=== PATIENT | female | born 1950 | race Caucasian/White ===

== ENCOUNTER 2019-09-09 12:27 | Inpatient (IN) | payer MEDICARE, BC ==
[~2019-09-09] VITALS: Ht 152.4 cm; Wt 54.4 kg
--- NOTE | 2019-09-09 12:48 | NUR ---
@bedside, MSE in progress
[2019-09-09] MEDS ORDERED: ONDANSETRON 4 MG/2 ML VIAL ONE (12:57)
[2019-09-09] MEDS ORDERED: PANTOPRAZOLE SODIUM 40 MG VIAL ONE (12:57)
[2019-09-09] MEDS ORDERED: PANTOPRAZOLE SODIUM 40 MG VIAL IV ONE (13:00)
[2019-09-09] MEDS ORDERED: ONDANSETRON 4 MG/2 ML VIAL IV ONE (13:00)
[2019-09-09] MEDS ORDERED: IV NORMAL SALINE 1000 ML BAG IV ONE ×2 (13:00→13:45)
[2019-09-09 13:20] LABS: CREATININE 2.8 mg/dL (0.6-1.3)
--- NOTE | 2019-09-09 13:22 | NUR ---
Patient is resting comfortably on gurney with eyes closed, denies abdominal pains@the moment, NAD, npo maintained. Extra warm blankets provided.
[2019-09-09 13:26] LABS: BILIRUBIN,DIRECT 0.2 mg/dL (0.0-0.2); BILIRUBIN,TOTAL 0.5 mg/dL (0.2-1.0); TOTAL PROTEIN, SERUM 7.3 g/dL (6.4-8.2)
[2019-09-09 13:38] LABS: BASOPHILS % (AUTO) 0.2 % (0.0-2.0); EOSINOPHILS % (AUTO) 0.3 % (0.0-7.0); HEMATOCRIT 36.9 % (31.2-41.9); HEMOGLOBIN 12.7 g/dL (10.9-14.3); LYMPHOCYTES # (AUTO) 0.6 K/uL (20.0-40.0); LYMPHOCYTES % (AUTO) 6.7 % (20.5-51.5); MEAN CORPUSCULAR HGB CONC 35 g/dL (32.3-35.6); MONOCYTES # (AUTO) 1.4 K/uL (2.0-10.0); MONOCYTES % (AUTO) 15.7 % (0.0-11.0); NEUTROPHILS # (AUTO) 6.9 K/uL (1.8-8.9); NEUTROPHILS % (AUTO) 77.1 % (38.5-71.5); PLATELET COUNT (AUTO) 302 K/uL (179-408); RED BLOOD CELL COUNT(AUTO) 4.24 MIL/uL (3.63-4.92)
[2019-09-09 13:53] LABS: BAND % (MANUAL) 24 % (0-10); BASOPHILS % (MANUAL) 1 % (0-2); LYMPHOCYTES % (MANUAL) 6 % (20-40); METAMYELOCYTES % 1 % (0-1); MONOCYTES % (MANUAL) 14 % (2-10); NEUTROPHILS % (MANUAL) 54 % (42-75)
--- NOTE | 2019-09-09 15:29 | NUR ---
68 year old female received from er via gurney for arf ,pt is [id number] light with in reach . called for admission orders
[2019-09-09 15:48] VITALS: BP 111/52
[2019-09-09] MEDS ORDERED: ZOLPIDEM 5 MG TABLET PO PRN (17:30)
[2019-09-09] MEDS ORDERED: diphenhydrAMINE 25 MG CAP PO PRN (17:30)
[2019-09-09] MEDS ORDERED: ACETAMINOPHEN 325 MG TABLET PO PRN (17:30)
[2019-09-09] MEDS ORDERED: Z GUARD REMEDY PASTE 57 GM TUBE TOP PRN (17:30)
[2019-09-09] MEDS ORDERED: MAGNESIUM HYDROXIDE 30 ML LIQUID UDC PO PRN (17:30)
[2019-09-09] MEDS: IV D5 1/2 NS 1000 ML 1,000 ML IV PRN (17:41)
[2019-09-09] MEDS: HYDROCODONE/APAP 5-325MG TABLET PO PRN (17:54)
[2019-09-09] MEDS: ONDANSETRON 4 MG/2 ML VIAL IV PRN (17:58)
[2019-09-09] MEDS: POTASSIUM CHLORIDE 50 ML IV SCH ×3 (18:05→22:39)
--- NOTE | 2019-09-09 19:30 | NUR ---
patient resting in bed watching tv. potassium running. v/s stable and no signs of acute distress. will continue to monitor.
[2019-09-09 19:50] VITALS: BP 100/42
[2019-09-09] MEDS: CARISOPRODOL 350 MG TABLET PO SCH (20:15)
--- NOTE | 2019-09-09 20:23 | NUR ---
spoke with marck in pharmacy. ok to change elavil to take at bedtime instead of morning.
[2019-09-09] MEDS: AMITRIPTYLINE HCL 50 MG TABLET PO SCH (21:02)
[2019-09-09] MEDS: DIPHENOXYLATE HCL/ATROP SULF TABLET PO PRN (22:39)
[2019-09-10] MEDS: POTASSIUM CHLORIDE 50 ML IV SCH (00:08)
[2019-09-10] MEDS ORDERED: POTASSIUM CHLORIDE 50 ML IV SCH ×2 (00:15→16:15)
--- NOTE | 2019-09-10 01:28 | NUR ---
hand off report given to night nurse.
--- NOTE | 2019-09-10 01:31 | NUR ---
3 BAGS OF POTASSIUM COMPLETED. FOR FIRST 2 BAGS PATIENT HAD C/O OF PAIN ON RIGHT ARM. REFUSED POTASSIUM ON AND OFF. NURSING INTERVENTIONS PROVIDED AND PATIENT TOLERATED LAST BAG WITH NO COMPLAINTS.
--- NOTE | 2019-09-10 01:55 | NUR ---
ASSUMED CARE FROM NURSE DAVIES; AGREE WITH PREVIOUS ASSESSMENT;
[2019-09-10 04:00] VITALS: BP 105/52
[2019-09-10] MEDS: HYDROCODONE/APAP 5-325MG TABLET PO PRN (05:25)
[2019-09-10] MEDS: DIPHENOXYLATE HCL/ATROP SULF TABLET PO PRN (05:25)
[2019-09-10] MEDS: PANTOPRAZOLE SODIUM 40 MG TABLET.DR PO SCH (06:31)
--- NOTE | 2019-09-10 07:44 | NUR ---
received pt. resting in bed alert oriented x4. pt. denies pain/ discomfort at this time. IV in R forearm 20 gauge intact patent running prescribed fluids. pt. on room air. pt. denies sob/ difficulty breathing. all needs met. safety measures in place. call light within reach. will continue to monitor pt.
[2019-09-10 07:53] VITALS: BP 103/53
[2019-09-10 07:53] LABS: CREATININE 2.2 mg/dL (0.6-1.3); MAGNESIUM 1.7 mg/dL (1.8-2.4); PHOSPHOROUS 3.2 mg/dL (2.5-4.9); POTASSIUM 3.1 mmol/L (3.5-5.1)
[2019-09-10 08:20] LABS: BASOPHILS % (AUTO) 0.4 % (0.0-2.0); EOSINOPHILS # (AUTO) 0.1 K/uL (0.0-0.7); EOSINOPHILS % (AUTO) 1.3 % (0.0-7.0); HEMATOCRIT 34.5 % (31.2-41.9); HEMOGLOBIN 12.2 g/dL (10.9-14.3); LYMPHOCYTES # (AUTO) 0.5 K/uL (20.0-40.0); LYMPHOCYTES % (AUTO) 7.7 % (20.5-51.5); MEAN CORPUSCULAR HEMOGLOBIN 30.4 uug (24.7-32.8); MEAN CORPUSCULAR HGB CONC 35 g/dL (32.3-35.6); MONOCYTES # (AUTO) 0.8 K/uL (2.0-10.0); MONOCYTES % (AUTO) 12.1 % (0.0-11.0); NEUTROPHILS # (AUTO) 5.1 K/uL (1.8-8.9); NEUTROPHILS % (AUTO) 78.5 % (38.5-71.5); PLATELET COUNT (AUTO) 263 K/uL (179-408); WHITE BLOOD COUNT (AUTO) 6.5 K/uL (3.8-11.8)
[2019-09-10] MEDS ORDERED: AMITRIPTYLINE HCL 50 MG TABLET PO SCH (09:00)
[2019-09-10] MEDS ORDERED: ATENOLOL 50 MG TABLET PO SCH (09:00)
[2019-09-10] MEDS ORDERED: AMLODIPINE 10 MG TABLET PO SCH (09:00)
[2019-09-10] MEDS ORDERED: Medication Not On Formulary EA (Esomeprazole Mag Trihydrate (Nexium) 40 MG) PO SCH (09:00)
[2019-09-10] MEDS ORDERED: CIPROFLOXACIN IV 400 MG in PREMIXED 1 EACH IV SCH ×2 (11:30→12:00)
[2019-09-10 12:00] VITALS: BP 109/46
[2019-09-10] MEDS ORDERED: PIPERACILLIN SODIUM/TAZOBACTAM 3.375 G in IV DEXTROSE 5% 50 ML IV SCH (12:00)
[2019-09-10] MEDS: IV D5 1/2 NS 1000 ML 1,000 ML IV PRN (12:26)
[2019-09-10] MEDS: ONDANSETRON 4 MG/2 ML VIAL IV PRN (12:27)
[2019-09-10] MEDS ORDERED: POTASSIUM CHLORIDE 10 MEQ TAB.PRT.SR PO ONE (12:30)
[2019-09-10] MEDS ORDERED: MAGNESIUM OXIDE 400 MG TABLET PO ONE (12:30)
--- NOTE | 2019-09-10 13:43 | NUR ---
Pt.'s IV in R Forearm 20 gauge started leaking new iv inserted on L hand 22 gauge infiltrated. New IV that is patent and running antibiotics is on R hand 22 gauge intact patent. will monitor
--- NOTE | 2019-09-10 13:44 | NUR ---
pt. states zofran is not helping she feels very nauseous still. pt. had emesis episode of dark green liquid. pt. had episode of diarrhea. pt. states she has back pain. does not want any PO medication as she is very nauseous. called dr. colby for orders. no answer at this time. will continue to monitor pt.
--- NOTE | 2019-09-10 15:47 | NUR ---
spoke to dr. gore about pt being nauseous drRosendo wants to put in ng tube on low intermittent suctioning. Pt. refused NG tube. Called Dr. Gore. back to report pt. refusal of Ng tube. Pt. requesting to switch antibiotics as she thinks cipro is what is making her nauseous. pt. had 2 episodes of emesis after providing pt. with PO K and Mg. Will ask if he wants to replace again.
[2019-09-10 15:51] VITALS: BP 120/61
--- NOTE | 2019-09-10 16:00 | NUR ---
Pt. has 3 bags of K and 1 bag of Mg. due pt. does not want IV at the moment because she wants to sit on toilet and does not want IV attached. Will give bags as soon as she finishes. May carry on to next shift as pt. has 4 bags total.
--- NOTE | 2019-09-10 16:12 | NUR ---
TO from Dr. Gore to give 30 meQ IV K and 1 gram IV Mg as pt. vomitted PO Mg and K.
[2019-09-10] MEDS ORDERED: MAGNESIUM SULFATE 1 GM in IV DEXTROSE 5% 100 ML IV ONE (16:15)
[2019-09-10] MEDS ORDERED: MAGNESIUM SULFATE/D5W 100 ML IV SCH (16:30)
[2019-09-10] MEDS: POTASSIUM CHLORIDE 10 MEQ, LIDOCAINE-MPF 1% 1 ML in IV DEXTROSE 5% 100 ML IV SCH ×3 (18:26→21:48)
--- NOTE | 2019-09-10 18:54 | NUR ---
2 RNs and charge nurse attempted to put in second IV. 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 Pt. is a hardstick. Called Dr. Gore to request an order for Midline. Awaiting call back from . I was able to hang 1 bag of Mg. 1 bag of K. 2 more bags of K need to be given and IV antibiotics. Steph REGIONAL SALES MANAGER came to consult pt. for Dr. Hinkle. After talking with REGIONAL SALES MANAGER Steph pt. is agreeing to do NG tube. Pt. is now on clear liquid diet. Dr. Portillo called and spoke to me regarding update on pt. He said he will not be in today but will come by.
--- NOTE | 2019-09-10 19:11 | NUR ---
TO order for Midline insertion from Dr. Gore. Cellar [facility] called.
[2019-09-10 19:44] VITALS: BP 120/51
[2019-09-10] MEDS: AMITRIPTYLINE HCL 50 MG TABLET PO SCH (21:18)
[2019-09-10] MEDS: CARISOPRODOL 350 MG TABLET PO SCH (21:18)
[2019-09-10] MEDS ORDERED: DIATR MEGLU/DIATRIZOATE SODIUM 30 ML SOLUTION ONE (21:34)
--- NOTE | 2019-09-10 22:49 | NUR ---
ADMINISTRATION OF POTASSIUM ENDORSED TO ME BY MORNING SHIFT COMPLETED. GAP OF TIME IN BETWEEN ADMINISTRATION DUE TO NG TUBE INSERTION. IV LINE REQUIRED TO BE DISCONNECTED. 1ST ATTEMPT FOR NG TUBE UNSUCCESSFUL. 2ND ATTEMPT SUCCESSFUL. PATIENT REFUSED IV LINES BEFORE AND AFTER NG INSERTIONS.
[2019-09-10] MEDS: MEROPENEM 500 MG in IV NORMAL SALINE 50 ML IV SCH (22:57)
--- NOTE | 2019-09-11 00:03 | NUR ---
PATIENT ADMINISTERED AMBIEN. ELECTRICAL OUTAGE ON TONIGHTS SHIFT. PREVIOUS NURSE WHO PULLED AMBIEN HAD ELECTRICAL OUTAGE WHEN REMOVING. WHEN PULLING AMBIEN FROM [facility] FOR THIS PATIENT COUNT WAS OFF BY 1 COUNT. THE CORRECT COUNT WAS 12, BUT [facility] HAD 13 CORRECT COUNT. NOTHING WAS PULLED FIRST TIME. 2ND ATTEMPT TO PULL AMBIEN 1 TABLET WAS TAKEN. CORRECT COUNT SHOULD BE 11 AFTER THIS ADMINISTRATION.
--- NOTE | 2019-09-11 00:45 | NUR ---
lilly araujo order NGT tube to be on low intermittent suction.
[2019-09-11 04:01] VITALS: BP 110/68
[2019-09-11] MEDS: METRONIDAZOLE 500 MG/NS 100ML 500 MG in PREMIXED 1 EACH IV SCH ×4 (04:21→12:49)
[2019-09-11] MEDS: IV D5 1/2 NS 1000 ML 1,000 ML IV PRN (04:21)
--- NOTE | 2019-09-11 04:35 | NUR ---
amy araujo ordered small bowel follow through
--- NOTE | 2019-09-11 04:38 | NUR ---
patient resting comfortably. NG tube suctioning and patent. will continue to monitor and endorse accordingly.
[2019-09-11] MEDS: MEROPENEM 500 MG in IV NORMAL SALINE 50 ML IV SCH ×2 (05:08→17:23)
[2019-09-11] MEDS: PANTOPRAZOLE SODIUM 40 MG TABLET.DR PO SCH (06:04)
[2019-09-11 06:29] LABS: BASOPHILS % (AUTO) 0.2 % (0.0-2.0); EOSINOPHILS # (AUTO) 0.1 K/uL (0.0-0.7); EOSINOPHILS % (AUTO) 0.8 % (0.0-7.0); HEMATOCRIT 36.4 % (31.2-41.9); HEMOGLOBIN 12.6 g/dL (10.9-14.3); LYMPHOCYTES # (AUTO) 0.6 K/uL (20.0-40.0); LYMPHOCYTES % (AUTO) 6.8 % (20.5-51.5); MEAN CORPUSCULAR HGB CONC 35 g/dL (32.3-35.6); MEAN CORPUSCULAR VOLUME 86.3 fL (75.5-95.3); NEUTROPHILS # (AUTO) 6.6 K/uL (1.8-8.9); NEUTROPHILS % (AUTO) 80.2 % (38.5-71.5); PLATELET COUNT (AUTO) 341 K/uL (179-408); RED BLOOD CELL COUNT(AUTO) 4.21 MIL/uL (3.63-4.92); WHITE BLOOD COUNT (AUTO) 8.2 K/uL (3.8-11.8)
[2019-09-11 06:48] LABS: MAGNESIUM 2.2 mg/dL (1.8-2.4); PHOSPHOROUS 2.3 mg/dL (2.5-4.9)
[2019-09-11 06:55] LABS: POTASSIUM 2.8 mmol/L (3.5-5.1)
--- NOTE | 2019-09-11 07:45 | NUR ---
received pt. resting in bed alert oriented x4. Pt. has L UA midline intact patent running prescribed fluid. IV in R hand 22 gauge intact patent saline lock. pt. denies sob/ difficulty breathing. Pt. has NG tube on low intermittent suctioning draining dark green fluid. Pt. signed consent for small bowel follow through ordered by KEREN Choi. All needs met. safety measures in place. call light within reach. will continue to monitor pt.
[2019-09-11] MEDS ORDERED: MAGNESIUM SULFATE/D5W 100 ML IV SCH (07:51)
--- NOTE | 2019-09-11 08:24 | NUR ---
Spoke to Dr. Gore about pt's PO medication for BP. He gave order to discontinue BP meds as pt.'s BP runs low and she has NG tube suctioning. Order for lidocaine viscous swish 5 ML Q 6 HR PRN. Orders put in.
[2019-09-11] MEDS: POTASSIUM CHLORIDE 50 ML IV SCH ×4 (09:50→17:15)
[2019-09-11] MEDS: POTASSIUM PHOSPHATE MM 7.5 MMOL in IV DEXTROSE 5% 100 ML IV SCH ×2 (09:50→18:04)
--- NOTE | 2019-09-11 10:36 | NUR ---
Pt.'s IV in R hand 22 gauge infiltrated. Will remove, ice, and elevate hand. Only will have one line in L UA midline.
[2019-09-11] MEDS: LIDOCAINE VISCUS 2% 15 ML UDC MM PRN ×2 (11:05→16:12)
[2019-09-11] MEDS ORDERED: HYDROMORPHONE 1 MG/1 ML DISP.SYRIN IV PRN (11:30)
[2019-09-11] MEDS: ONDANSETRON 4 MG/2 ML VIAL IV PRN (11:33)
[2019-09-11 12:00] VITALS: BP 119/65
--- NOTE | 2019-09-11 12:19 | NUR ---
Pt. removed from NG tube suctioning due to small bowel follow through procedure. KEREN Choi saw pt. at bedside. KEREN Talavera saw pt. at bedside.
--- NOTE | 2019-09-11 12:54 | NUR ---
Pt. stated she sneezed and NG tube came out. Pt. states she did not pull it out and does not want it put back in right now. Educated pt. on importance of NG tube. She stated she does not want it in right now. Will tell hospitalist.
[2019-09-11 13:11] LABS: BAND % (MANUAL) 6 % (0-10); LYMPHOCYTES % (MANUAL) 8 % (20-40); MONOCYTES % (MANUAL) 12 % (2-10); NEUTROPHILS % (MANUAL) 74 % (42-75)
[2019-09-11] MEDS ORDERED: DIAZEPAM 10 MG/2 ML DISP.SYRIN IV PRN (15:15)
[2019-09-11] MEDS: LORAZEPAM 2 MG/1 ML VIAL IV PRN ×2 (16:08→23:34)
--- NOTE | 2019-09-11 18:37 | NUR ---
3 ATTEMPTS TO PUT IN NG TUBE WITH ICU NURSE AND CHARGE NURSE. KUB IS SHOWING THAT THE NG TUBE IS COILING. PT DOES HAVE LARGE HIATAL HERNIA. SPOKE TO ARIES CADET SHE SAID LONG IT IS IN THE STOMACH AND IT IS COILED ITS OKAY. AWAITING KUB
--- NOTE | 2019-09-11 19:15 | NUR ---
RECEIVED PATIENT AWAKE IN BED. AO X 4. SON AT THE BEDSIDE. CURRENTLY NO NG-TUBE INSERTED IN PATIENT. WAS INFORMED PATIENT IS AWAITING SURGICAL CONSULT TOMORROW. PATIENT KEPT WITH HEAD OF BED AT 90 DEGREES. PATIENT DOES NOT VOICE ANY DISCOMFORT AT THE MOMENT OR SHORTNESS OF BREATH. DENIES NAUSEA. MIDLINE IN LEFT UPPER ARM FLUSHING, PATENT, AND INTACT. WILL CONTINUE TO MONITOR PATIENT ACCORDINGLY.
--- NOTE | 2019-09-11 19:30 | NUR ---
ARIES Talavera aware of NG tube coiling and Steph VELIZ aware of NG tube coiling. Removed NG tube. No new orders awaiting for surgery to see pt tomorrow. Will keep HOB >90 aspiration risk
[2019-09-11] MEDS: AMITRIPTYLINE HCL 50 MG TABLET PO SCH (21:00)
[2019-09-11] MEDS: CARISOPRODOL 350 MG TABLET PO SCH (21:00)
[2019-09-11 21:04] VITALS: BP 105/54
[2019-09-12] MEDS: IV D5 1/2 NS 1000 ML 1,000 ML IV PRN (04:01)
[2019-09-12] MEDS: MEROPENEM 500 MG in IV NORMAL SALINE 50 ML IV SCH ×2 (05:56→18:11)
[2019-09-12 05:59] VITALS: BP 119/67
--- NOTE | 2019-09-12 06:18 | NUR ---
PATIENT SLEPT WELL THROUGHOUT THE NIGHT WITH HEAD OF BED AT 90 DEGREES AT ALL TIME. NO COMPLAINTS OF PAIN OR NAUSEA. PATIENT HAD WATERY DIARRHEA X 3 THROUGHOUT SHIFT. HELD MEDICATIONS DUE TO NPO STATUS. NO ACUTE CHANGE IN PATIENT CONDITION. WILL ENDORSE TO ONCOMING SHIFT.
[2019-09-12 07:17] LABS: BASOPHILS % (AUTO) 0.3 % (0.0-2.0); EOSINOPHILS # (AUTO) 0.1 K/uL (0.0-0.7); EOSINOPHILS % (AUTO) 1.2 % (0.0-7.0); HEMATOCRIT 39.6 % (31.2-41.9); HEMOGLOBIN 13.8 g/dL (10.9-14.3); LYMPHOCYTES # (AUTO) 1.1 K/uL (20.0-40.0); LYMPHOCYTES % (AUTO) 10.9 % (20.5-51.5); MEAN CORPUSCULAR HEMOGLOBIN 30.3 uug (24.7-32.8); MEAN CORPUSCULAR HGB CONC 35 g/dL (32.3-35.6); MEAN CORPUSCULAR VOLUME 86.6 fL (75.5-95.3); MONOCYTES # (AUTO) 1.2 K/uL (2.0-10.0); MONOCYTES % (AUTO) 11.6 % (0.0-11.0); NEUTROPHILS # (AUTO) 7.6 K/uL (1.8-8.9); PLATELET COUNT (AUTO) 397 K/uL (179-408); RED BLOOD CELL COUNT(AUTO) 4.57 MIL/uL (3.63-4.92)
[2019-09-12 07:30] LABS: BILIRUBIN,TOTAL 0.5 mg/dL (0.2-1.0); MAGNESIUM 2.6 mg/dL (1.8-2.4); PHOSPHOROUS 2.6 mg/dL (2.5-4.9); TOTAL PROTEIN, SERUM 7.4 g/dL (6.4-8.2)
[2019-09-12 07:57] LABS: POTASSIUM 2.9 mmol/L (3.5-5.1)
[2019-09-12 10:06] LABS: A/G RATIO 0.9 (0.7-1.7); ALBUMIN 2.9 g/dL (2.9-4.4); ALPHA-1-GLOBULIN 0.4 g/dL (0.0-0.4); ALPHA-2-GLOBULIN 0.9 g/dL (0.4-1.0); GAMMA GLOBULIN 0.9 g/dL (0.4-1.8); GLOBULIN, TOTAL 3.3 g/dL (2.2-3.9); M-SPIKE Not Observed g/dL (Not Observed)
[2019-09-12 12:00] VITALS: BP 128/70
[2019-09-12] MEDS: POTASSIUM CHLORIDE 50 ML IV SCH ×4 (13:55→16:59)
[2019-09-12 16:00] VITALS: BP 145/79
[2019-09-12] MEDS ORDERED: PANTOPRAZOLE SODIUM 40 MG VIAL IV SCH (18:00)
--- NOTE | 2019-09-12 19:20 | NUR ---
PATIENT IN BED WITH HOB ELEVATED, ALERT AND ORIENTED X3, NO SOB AND NO C/O PAIN AT THIS TIME. KEPT CLEAN AND DRY AT ALL TIMES. BED IN LOW POSITION AND SIDE RAILS UP . ALL NEEDS ATTENDED. CALL LIGHT WITHIN REACH. WILL CONTINUE TO MONITOR.
[2019-09-12 19:56] VITALS: BP 118/72
--- NOTE | 2019-09-12 20:00 | NUR ---
RECEIVED PATIENT AWAKE IN BED. A/O X4. DENIES PAIN. NO RESP. DISTRESS NOTED. VS WNL. IVF INFUSING WELL TO LEFT UPPER ARM MID-LINE. CALL LIGHT IN REACH. ALL NEEDS ATTENDED. WILL CONTINUE TO MONITOR AND ASSESS.
[2019-09-12] MEDS: CARISOPRODOL 350 MG TABLET PO SCH (20:59)
[2019-09-12] MEDS: AMITRIPTYLINE HCL 50 MG TABLET PO SCH (20:59)
[2019-09-12] MEDS: ONDANSETRON 4 MG/2 ML VIAL IV PRN (21:35)
[2019-09-13] MEDS: IV D5 1/2 NS 1000 ML 1,000 ML IV PRN (03:12)
[2019-09-13] MEDS: MEROPENEM 500 MG in IV NORMAL SALINE 50 ML IV SCH (05:12)
[2019-09-13 06:19] LABS: BASOPHILS % (AUTO) 0.1 % (0.0-2.0); EOSINOPHILS # (AUTO) 0.2 K/uL (0.0-0.7); EOSINOPHILS % (AUTO) 1.3 % (0.0-7.0); HEMATOCRIT 36.7 % (31.2-41.9); HEMOGLOBIN 12.7 g/dL (10.9-14.3); LYMPHOCYTES # (AUTO) 1.3 K/uL (20.0-40.0); MEAN CORPUSCULAR HEMOGLOBIN 29.8 uug (24.7-32.8); MEAN CORPUSCULAR HGB CONC 35 g/dL (32.3-35.6); MEAN CORPUSCULAR VOLUME 86.2 fL (75.5-95.3); MONOCYTES # (AUTO) 0.9 K/uL (2.0-10.0); MONOCYTES % (AUTO) 7.5 % (0.0-11.0); NEUTROPHILS # (AUTO) 10.1 K/uL (1.8-8.9); NEUTROPHILS % (AUTO) 81.1 % (38.5-71.5); PLATELET COUNT (AUTO) 391 K/uL (179-408); RED BLOOD CELL COUNT(AUTO) 4.26 MIL/uL (3.63-4.92); WHITE BLOOD COUNT (AUTO) 12.5 K/uL (3.8-11.8)
[2019-09-13 06:38] LABS: CREATININE 1.6 mg/dL (0.6-1.3); MAGNESIUM 2.1 mg/dL (1.8-2.4); PHOSPHOROUS 1.8 mg/dL (2.5-4.9)
[2019-09-13 06:45] LABS: POTASSIUM 2.8 mmol/L (3.5-5.1)
[2019-09-13] MEDS ORDERED: IV DEXTROSE 5W-0.45% NS + KCL 1,000 ML IV ONE (07:45)
[2019-09-13] MEDS ORDERED: POTASSIUM CHLORIDE 20 MEQ TAB.PRT.SR PO ONE (07:45)
--- NOTE | 2019-09-13 07:45 | NUR ---
CALLED DR. VILLARREAL OFFICE AT 0720 FOR PATIENT CRITICAL LAB OF POTASSIUM OF 2.8 . RECEIVED ORDER FROM DR. NOVAK OF POTASSIUM 40 MEQ PO AND D5 1/2 NS WITH 40 MEQ OF POTASSIUM AT 120 ML /HR.
[2019-09-13] MEDS ORDERED: POTASSIUM CHLORIDE 20 MEQ POWDER PACKET PO ONE (09:00)
[2019-09-13 11:18] VITALS: BP 122/59
[2019-09-13] MEDS: POTASSIUM PHOSPHATE MM 5 MMOL in IV DEXTROSE 5% 100 ML IV SCH ×4 (11:37→17:38)
[2019-09-13] MEDS: ONDANSETRON 4 MG/2 ML VIAL IV PRN (12:50)
[2019-09-13 15:05] VITALS: BP 122/70
--- NOTE | 2019-09-13 18:10 | NUR ---
RECEIVED DISCHARGE ORDER WITH HOME HEALTH FOR PATIENT TO GO HOME VIA PRIVATE CAR. DISCHARGE INSTRUCTION GIVEN AND VERBALIZED UNDERSTANDING. BELONGING ACCOUNTED FOR AND SIGNED. MIDLINE KEPT FOR HOME HEALTH USE AND FOR HYDRATION. ID BAND REMOVED. NO C/O PAIN AND NO SOB NOTED. QUESTION AND CONCERNS ADDRESSED. PATIENT ESCORTED OUT THE FACILITY VIA WHEELCHAIR.
== END 2019-09-13 18:10 | disposition home health service (06) | DRG 388 ==
LOC: ER 12:29 → MEDSURG3 14:30
PROVIDERS: ADMIT Internal Medicine; ATTEND Internal Medicine
PROC: 05HA33Z Insertion of Infusion Device into Left Brachial Vein, Percutaneous Approach (ICD-10-PCS; principal; 2019-09-10)
PROC: 0D9670Z Drainage of Stomach with Drainage Device, Via Natural or Artificial Opening (ICD-10-PCS; 2019-09-11)
DX: K56.50 Intestinal adhesions [bands], unspecified as to partial versus complete obstruction (principal); N17.0 Acute kidney failure with tubular necrosis; E87.1 Hypo-osmolality and hyponatremia; J98.11 Atelectasis; M79.7 Fibromyalgia; K21.9 Gastro-esophageal reflux disease without esophagitis; E87.6 Hypokalemia; Z93.3 Colostomy status; K80.20 Calculus of gallbladder without cholecystitis without obstruction; K44.9 Diaphragmatic hernia without obstruction or gangrene; K76.0 Fatty (change of) liver, not elsewhere classified; E83.42 Hypomagnesemia; E78.5 Hyperlipidemia, unspecified; E86.1 Hypovolemia; Z92.3 Personal history of irradiation; Z92.21 Personal history of antineoplastic chemotherapy; Z90.710 Acquired absence of both cervix and uterus; Z85.42 Personal history of malignant neoplasm of other parts of uterus; K56.699 Other intestinal obstruction unspecified as to partial versus complete obstruction; K43.2 Incisional hernia without obstruction or gangrene; K58.9 Irritable bowel syndrome, unspecified; K40.20 Bilateral inguinal hernia, without obstruction or gangrene, not specified as recurrent; J47.9 Bronchiectasis, uncomplicated; M81.0 Age-related osteoporosis without current pathological fracture; N26.1 Atrophy of kidney (terminal); I13.10 Hypertensive heart and chronic kidney disease without heart failure, with stage 1 through stage 4 chronic kidney disease, or unspecified chronic kidney disease; E11.22 Type 2 diabetes mellitus with diabetic chronic kidney disease; N18.9 Chronic kidney disease, unspecified; I25.10 Atherosclerotic heart disease of native coronary artery without angina pectoris; Z88.0 Allergy status to penicillin; Z91.018 Allergy to other foods
CPT/HCPCS: 36415; 70030-TC; 71045; 74018; 74250; 83605; 83690; 83735; 83970; 84100; 84155; 84165; 85025; 86625; 87046; 87086; 93005; A4663; C9113; G0378; J0744; J2001; J2060; J2185; J2405; J3475; J3480; J3490; J7030; J7050; J7060; Q9963

== ENCOUNTER 2023-03-25 18:07 | Emergency (ER) | payer MEDICARE ==
[~2023-03-25 18:07] MED LIST: AMIT50TA17 PO; AMLO10TA4 PO; ATEN-171 PO; CARI350T PO; DIPH1TAB PO; DIPH25TA62 PO; ESOM40CA PO
== END 2023-03-25 20:30 | disposition left against medical advice (07) ==
LOC: ER 18:11
DX: Z53.21 Procedure and treatment not carried out due to patient leaving prior to being seen by health care provider (principal)